=== PATIENT | male | born 1990 | race Caucasian/White ===

== ENCOUNTER → 2020-04-15 12:06 | Outpatient (CLI) | payer OTHER, SELFPAY ==
--- NOTE | 2020-04-15 | DI.MRI.S_ITS ---
PROCEDURE: MR BRAIN (PITUITARY) WWO CON INDICATIONS: Hyperfunction of pituitary gland, unspecified TECHNIQUE: Noncontrast sagittal and axial FLAIR, axial gradient echo, axial diffusion and ADC through the brain. Thin-slice sagittal and coronal T1 spin echo, coronal T2 fast spin echo through the pituitary. After the administration contrast, optional dynamic coronal T1 spin echo, thin-slice coronal and sagittal T1 spin echo images through the pituitary fossa; axial T1 spin echo with fat saturation through the brain. COMPARISON: None. FINDINGS: Image quality: Excellent. Pituitary Gland: No pituitary macroadenoma. A microadenoma is not identified, and the pituitary stalk is at midline without deviation. CSF Spaces: Ventricles are normal in size and shape. Basal cisterns are patent. No extra-axial fluid collections. Brain: No intracranial bleeds or mass effects. No abnormal intracranial enhancement. Rodriguez-white matter interface is intact. Diffusion weighted images demonstrate no acute ischemic insults. Brainstem is normal. Normal intravascular flow voids are present. Skull and face: Calvarial marrow is normal in signal. Orbits appear normal. Sinuses: Sinuses and mastoids are clear. IMPRESSION: Normal brain MRI, normal appearance of the pituitary gland and pituitary stalk. By this examination a pituitary microadenoma is not suspected. Please note that some functioning pituitary microadenoma as are below the threshold for accurate detection by MR scanning. Dictated by: Prashanth Lomeli M.D. on 04/15/2020 at 14:07 Approved by: Prashanth Lomeli M.D. on 04/15/2020 at 14:10
== END ==
PROVIDERS: Referring Provider Urology; Visit Provider Urology
DX: E22.9 Hyperfunction of pituitary gland, unspecified (principal)
CPT/HCPCS: 70553; A9579